=== PATIENT | male | born 1950 | race American Indian/Alaskan Native ===

== ENCOUNTER 2018-02-16 06:25 | Inpatient (IN) | payer OTHER, MEDICARE ==
[2018-01-03 12:14] VITALS: BMI 50.1
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
[2018-02-16] MEDS ORDERED: Sevoflurane - Inhalation Anesthetic Liq (250 ml) ONE (07:12)
[2018-02-16] MEDS ORDERED: ceFAZolin IV 2 gm in Dextrose 4 GM/100 ML BAG IVPB ONE (07:16)
[2018-02-16] MEDS ORDERED: Thrombin Topical 5,000 Int Units Spray Kit ONE (07:17)
[2018-02-16] MEDS ORDERED: Bacitracin Ointment 30 GM TUBE ONE ×2 (07:17→13:41)
[2018-02-16] MEDS ORDERED: Absorbable Gelatin Sponge Size 100 ONE (07:17)
[2018-02-16 07:20] LABS: BASO # 0.1 K/uL (0.0-0.2); EOS # 0.3 K/uL (0.0-0.7); HEMOGLOBIN 14.2 g/dL (12.0-18.0); LYMPH % 29.8 % (20.0-40.0); MEAN CELL VOLUME 93.7 fl (80.0-94.0); MEAN CORPUSCULAR HEMOGLOBIN 31.5 pg (27.0-31.0); MEAN CORPUSCULAR HGB CONC 33.6 g/dL (33.0-37.0); MEAN PLATELET VOLUME 8.6 fl (7.2-11.7); MONO # 0.7 K/uL (0.0-0.8); MONO % 10.4 % (0.0-10.0); NEUT # 3.6 K/uL (1.8-7.0); NEUT % 54.8 % (50.0-75.0); RBC 4.5 Mil/uL (4.40-5.90); RED CELL DISTRIBUTION WIDTH 13.5 % (11.5-14.5); WHITE BLOOD COUNT 6.6 K/uL (4.8-10.8)
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
[2018-02-16] MEDS ORDERED: Lactated Ringer's 1,000 ML IV ONE ×3 (07:30→12:30)
[2018-02-16] MEDS ORDERED: Bupivacaine HCl 0.25% PF (10 ml) Inj ONE ×2 (08:06→09:37)
[2018-02-16] MEDS ORDERED: Midazolam 2 MG/2 ML VIAL ONE (08:48)
[2018-02-16] MEDS ORDERED: Propofol 10 mg/ml Inj (20 ML) ONE (08:48)
[2018-02-16] MEDS ORDERED: Rocuronium 10 mg/ml (5 ml) ONE ×2 (08:48→10:43)
[2018-02-16] MEDS ORDERED: Succinylcholine 200 mg/10 ml Inj IV ONE (08:49)
[2018-02-16] MEDS ORDERED: Lidocaine 2% Jelly (5 ml) TOP ONE (09:51)
[2018-02-16] MEDS ORDERED: Sodium Chloride 0.9% 500 ML IV ONE (10:30)
[2018-02-16] MEDS ORDERED: Labetalol 5mg/ml (4ml) ONE (11:04)
[2018-02-16] MEDS ORDERED: EPINEPHrine 1 mg/ml (1:1000) Inj ONE (11:18)
[2018-02-16] MEDS ORDERED: EPINEPHrine 1 mg/ml (1:1000) Inj IV ONE (11:20)
[2018-02-16] MEDS ORDERED: Tranexamic Acid 1,000 MG in Sodium Chloride 0.9% 100 ML IVPB STA (11:22)
--- NOTE | 2018-02-16 11:31 | RAD ---
PROCEDURE: Left Knee Radiographs. HISTORY: Pain. No history of recent/ related trauma provided COMPARISON: None. FINDINGS: BONES: No acute fracture JOINTS: Severe tricompartmental degenerative change. No acute fracture. Proliferative hypertrophic changes emanating from the femoral condyle and tibial plateau regions. JOINT EFFUSION: None. OTHER FINDINGS: None. IMPRESSION: No acute findings. Severe tricompartmental degenerative change.
[2018-02-16 13:02] LABS: MEAN CELL VOLUME 92.9 fl (80.0-94.0); MEAN CORPUSCULAR HEMOGLOBIN 31.4 pg (27.0-31.0); MEAN CORPUSCULAR HGB CONC 33.8 g/dL (33.0-37.0); RBC 3.64 Mil/uL (4.40-5.90); RED CELL DISTRIBUTION WIDTH 13.7 % (11.5-14.5); WHITE BLOOD COUNT 5.5 K/uL (4.8-10.8)
[2018-02-16] MEDS ORDERED: Neostigmine 1:1000 (1 mg/ml) Inj ONE (13:13)
[2018-02-16 13:25] LABS: HEMOGLOBIN 11.4 g/dL (12.0-18.0)
[2018-02-16] MEDS ORDERED: Bacitracin Opht OINT 3.5GM OU ONE (14:00)
[2018-02-16] MEDS ORDERED: HYDROmorphone 0.5 mg/0.5 ml ISec ONE ×2 (14:31→14:39)
[2018-02-16] MEDS ORDERED: HYDROmorphone 0.5 mg/0.5 ml ISec IVP PRN (14:32)
--- NOTE | 2018-02-16 14:44 | PCM.ANESB3 ---
Femoral Nerve Block - Femoral Nerve Block Date of Procedure: 02/16/18 Anesthesiologist: Yamile Pre-Procedure Diagnosis: s/p left total knee arthroplasty Post-Procedure Diagnosis: same Procedure Performed: Femoral Nerve Block Left - Procedure Femoral Nerve Block: The procedure was explained to the patient that it is for the post-operative pain management. Consent was obtained after a thorough discussion with the patient regarding the benefits and possible complications of local anesthetic block of the femoral nerve at the inguinal crease area. The patient was brought to the operating room and standard monitors were applied. Time-out was held with the circulating nurse to confirm the correct surgery and the appropriate block. Patient was placed in supine position with fully extended lower extremities and the left groin exposed. The femoral artery was then carefully palpated. The ultrasound transducer was then applied to this area in the transverse plane and the femoral nerve was visualized lateral to the femoral artery and underneath the fascia iliaca. After thorough identification, the inguinal crease area was prepped with chloraprep. At this point, a #22 gauge Stimuplex 4-inch needle was inserted immediately lateral to the femoral artery pulse at the inguinal crease and advanced perpendicularly. The needle was inserted to the ultrasound transducer in-plane towards the femoral nerve in a [id number] direction. Needle advancement was performed carefully under direct ultrasound visualization. Nerve stimulator was used and twitch of the quadriceps muscle was obtained at current of __0.5_ MA. After negative aspiration, 5cc of 0.25% bupivacaine was injected and this was followed with 25cc of 0.25% Bupivacaine. Under ultrasound guidance the local anesthetics were observed spreading below fascia iliaca and around the femoral nerve. The needle was removed intact and sterile dressing was applied. The patient had stable vital signs, was conscious and in no apparent distress. The patient tolerated the femoral nerve block well with stable vital signs.
[2018-02-16] MEDS ORDERED: Acetaminophen IV 1,000 MG in IV SUPPLIES 100 ML IVPB STA (14:45)
[2018-02-16] MEDS ORDERED: Fluticasone-Salmeterol 250-50mcg Diskus INH PRN (15:24)
--- NOTE | 2018-02-16 16:08 | RAD ---
PROCEDURE: Left knee radiographs HISTORY: s/p L TKA COMPARISON: Preoperative study February 16, 2018. . TECHNIQUE: Standard protocol for this study/examination. FINDINGS: Satisfactory position and alignment of components left TKA. IMPRESSION: Satisfactory postoperative status
[2018-02-16] MEDS ORDERED: HYDROmorphone 1 mg/ml ISec IVP PRN (17:21)
--- NOTE | 2018-02-16 17:53 | PCM.SURG1 ---
Surgeon's Initial Post Op Note - Surgeon's Notes Surgeon: Nanci Pelletier MD Program Manager Environmental Planning: Vickie Carpio PA-C, Hans GARDNER, Lois Chauhan PA-C Type of Anesthesia: General Endo Anesthesia Administered By: Dr. Laguerre Pre-Operative Diagnosis: Left knee tricompartmental degenerative joint disease. Morbid obesity Operative Findings: tourniquet:2 hours @ 425mmHg Post-Operative Diagnosis: same Operation Performed: 1. Left total knee arthroplasty, complex due to modifier of morbid obesity. 2. morbid obesity. 3. posterior capsular release. 4. anterior and posterior synovectomy. 5. computer navigation Specimen/Specimens Removed: bone Estimated Blood Loss: EBL {In ML}: 700 Blood Products Given: N/A Drains Used: Hemovac Post-Op Condition: Fair Date of Surgery/Procedure: 02/16/18 Time of Surgery/Procedure: 18:08
[2018-02-16] MEDS: ceFAZolin IV 2 gm in Dextrose 2 GM/50 ML BAG IVPB SCH (18:07)
[2018-02-16] MEDS: HYDROmorphone 0.5 mg/0.5 ml ISec IVP PRN ×2 (18:10→23:48)
[2018-02-16] MEDS: Lactated Ringer's 1,000 ML IV SCH (18:17)
[2018-02-17] MEDS: ceFAZolin IV 2 gm in Dextrose 2 GM/50 ML BAG IVPB SCH ×2 (00:02→09:13)
[2018-02-17] MEDS: HYDROmorphone 0.5 mg/0.5 ml ISec IVP PRN ×4 (04:21→22:57)
[2018-02-17] MEDS: Lactated Ringer's 1,000 ML IV SCH (04:21)
[2018-02-17 06:59] LABS: HEMOGLOBIN 10.8 g/dL (12.0-18.0); MEAN CELL VOLUME 92.7 fl (80.0-94.0); MEAN CORPUSCULAR HEMOGLOBIN 32.1 pg (27.0-31.0); MEAN CORPUSCULAR HGB CONC 34.6 g/dL (33.0-37.0); RBC 3.37 Mil/uL (4.40-5.90); RED CELL DISTRIBUTION WIDTH 13.5 % (11.5-14.5); WHITE BLOOD COUNT 10.8 K/uL (4.8-10.8)
[2018-02-17 07:06] LABS: BLOOD UREA NITROGEN 14 mg/dl (9-20); CALCIUM 7.8 mg/dL (8.4-10.2); GFR AFRICAN-AMERICAN > 60; GFR NON-AFRICAN AMERICAN > 60
--- NOTE | 2018-02-17 09:07 | CP.PCM.PN ---
Subjective - Date & Time of Evaluation Date of Evaluation: 02/17/18 Time of Evaluation: 09:05 - Subjective Subjective: Patient states the knee immobilizer is hurting his ankle more that the knee pain. Denies CP/SOB/dizziness Objective - Vital Signs/Intake and Output Vital Signs (last 24 hours): Temp Pulse Resp BP Pulse Ox 98.1 F 101 H 19 147/74 94 L 02/17/18 07:55 02/17/18 07:55 02/17/18 07:55 02/17/18 07:55 02/17/18 07:55 Intake and Output: 02/17/18 02/17/18 06:59 18:59 Intake Total 650 Output Total 650 Balance 0 - Medications Medications: Current Medications Acetaminophen (Tylenol 325mg Tab) 650 mg PO Q4 PRN PRN Reason: Fever 101 degrees fahrenheit Docusate Sodium (Colace) 100 mg PO BID [facility] Last Admin: 02/16/18 18:18 Dose: 100 mg Dronedarone (Multaq) 400 mg PO BID [facility] Last Admin: 02/16/18 18:09 Dose: 400 mg Enoxaparin Sodium (Lovenox) 40 mg SC DAILY [facility] PRN Reason: Protocol Ferrous Sulfate (Feosol) 325 mg PO BID [facility] Last Admin: 02/16/18 18:08 Dose: 325 mg Folic Acid (Folic Acid) 1 mg PO DAILY [facility] Hydromorphone HCl (Dilaudid) 1 mg IVP Q4 PRN PRN Reason: Pain, severe (8-10) Last Admin: 02/17/18 04:21 Dose: 1 mg Cefazolin Sodium/Dextrose (Ancef Iv 2 Gm Duplex) 2 gm in 50 mls @ 50 mls/hr IVPB Q8 [facility] PRN Reason: Protocol Stop: 02/17/18 09:59 Last Admin: 02/17/18 00:02 Dose: 50 mls/hr Lactated Ringer's (Lactated Ringer's) 1,000 mls @ 100 mls/hr IV .Q10H [facility] Last Admin: 02/17/18 04:21 Dose: 100 mls/hr Metoprolol Succinate (Toprol Xl) 25 mg PO DAILY [facility] Ondansetron HCl (Zofran Inj) 4 mg IVP ONCE PRN PRN Reason: Nausea/Vomiting Oxycodone/Acetaminophen (Percocet 5/325 Mg Tab) 2 tab PO Q6 PRN PRN Reason: Pain, moderate (4-7) Stop: 02/19/18 17:23 Fluticasone/Salmeterol (Advair Diskus 250/50) 1 puff INH DAILY PRN PRN Reason: Allergy symptoms - Labs Labs: 02/17/18 06:30 02/17/18 06:30 - Extremities Exam Additional comments: LLE: hemovac 10cc, pulled +ROM ankle/toes, sensation intact, +DP/PT pulses calves soft Nt neg homans Assessment and Plan (1) Primary osteoarthritis of left knee Assessment & Plan: POD#1 s/p left TKR -PT/OT/CPM -d/c planning -VTE proph with lovenox -ortho stable -d/w Dr. Pelletier, agrees with above Status: Acute (2) Morbid obesity Status: Chronic (3) A-fib Status: Chronic (4) HTN (hypertension) Status: Chronic
[2018-02-17] MEDS: Enoxaparin 40 mg Syringe SC SCH (09:14)
[2018-02-17] MEDS: Metoprolol Succinate 25 mg XL Tab PO SCH (09:15)
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
[2018-02-17] MEDS: Oxycodone/Acetaminophen 5/325 mg Tab PO PRN ×2 (12:52→19:24)
--- NOTE | 2018-02-17 13:06 | CP.PCM.PN ---
Subjective - Date & Time of Evaluation Date of Evaluation: 02/17/18 Time of Evaluation: 10:00 - Subjective Subjective: Patient was seen and examined at bedside this morning. Relates that he has pain with movement but it is controlled with pain medications. Has no new complaints today. Was seen by physical therapy. Denies chest pain, fever, chills, nausea, vomiting, diarrhea. Objective - Vital Signs/Intake and Output Vital Signs (last 24 hours): Temp Pulse Resp BP Pulse Ox 98.1 F 85 19 121/74 94 L 02/17/18 12:19 02/17/18 12:19 02/17/18 12:19 02/17/18 12:19 02/17/18 12:19 Intake and Output: 02/17/18 02/17/18 06:59 18:59 Intake Total 650 Output Total 650 Balance 0 - Medications Medications: Current Medications Acetaminophen (Tylenol 325mg Tab) 650 mg PO Q4 PRN PRN Reason: Fever 101 degrees fahrenheit Docusate Sodium (Colace) 100 mg PO BID [facility] Last Admin: 02/17/18 09:14 Dose: 100 mg Dronedarone (Multaq) 400 mg PO BID [facility] Last Admin: 02/17/18 09:15 Dose: 400 mg Enoxaparin Sodium (Lovenox) 40 mg SC DAILY [facility] PRN Reason: Protocol Last Admin: 02/17/18 09:14 Dose: 40 mg Ferrous Sulfate (Feosol) 325 mg PO BID [facility] Last Admin: 02/17/18 09:14 Dose: 325 mg Folic Acid (Folic Acid) 1 mg PO DAILY [facility] Last Admin: 02/17/18 09:14 Dose: 1 mg Hydromorphone HCl (Dilaudid) 1 mg IVP Q4 PRN PRN Reason: Pain, severe (8-10) Last Admin: 02/17/18 09:08 Dose: 1 mg Metoprolol Succinate (Toprol Xl) 25 mg PO DAILY [facility] Last Admin: 02/17/18 09:15 Dose: 25 mg Ondansetron HCl (Zofran Inj) 4 mg IVP ONCE PRN PRN Reason: Nausea/Vomiting Oxycodone/Acetaminophen (Percocet 5/325 Mg Tab) 2 tab PO Q6 PRN PRN Reason: Pain, moderate (4-7) Stop: 06/03/18 17:23 Last Admin: 02/17/18 12:52 Dose: 2 tab Fluticasone/Salmeterol (Advair Diskus 250/50) 1 puff INH DAILY PRN PRN Reason: Allergy symptoms - Labs Labs: 02/17/18 06:30 02/17/18 06:30 - Additional Findings Additional findings: Physical exam: Constitutional- cooperative, awake, alert Head- NCAT, PERRL Eye- PERRL, EOMI ENT- normal exam, MMM. Neck- normal inspection, supple, no JVD Respiratory- CTAB, no wheezes rales rhonchi Cardiovascular- irregular rate and rhythm +S1, +S2 no MRG GI/Abdominal- normal bowel sounds, soft, no mass, no hsm Skin- warm, dry Extremities Exam- + Decreased ROM to left knee. normal capillary refill, normal inspection Neurological Exam- alert, awake, oriented Psych- normal mood, normal affect Assessment and Plan - Assessment and Plan (Free Text) Plan: Assessment & Plan 67 yo male admitted s/p L TKR, with pmh chronic afib, HTN, asthma/COPD, stable at present. 1) s/p L TKR, post op day #1 -routine post op care -pain mgmt with percocet - Colace for contstipation prevention - Orthopedic consultation with Dr. Pelletier - Physical therapy 2) HTN - [place] Toprol 3) HLD - chronic, stable 4) Asthma/COPD -- stable, chronic - Advair (home medication) 5) A fib -- chronic, stable - continue Toprol for rate control - Dronedarone 400 mg po BID 6) DVT PPx -- Continue Lovenox as per orthopedics Status: Acute Disposition: Plan for discharge on Tuesday02/19/2018 to [facility] as per case management
--- NOTE | 2018-02-17 19:28 | CP.PCM.CON ---
History of Present Illness - History of Present Illness History of Present Illness: THE PATIENT IS A 67 YEAR OLD MALE WHO WAS ADMITTED YESTERDAY AND UNDERWENT A LEFT TKR FOR SEVERE OA AND TRAUMA. I WAS ASKED TO FOLLOW HIM POST-OP. HE ALSO HAS A HISTORY OF HYPERTENSION, HYPERLIPIDEMIA, EPISODES OF ATRIAL FIBRILLATION SINCE 1999, COPD AND MORBID OBESITY. 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 HE DENIES ANY CHEST PAIN, PALPITATIONS OR SOB AT THE PRESENT TIME. HE ALSO HAD A PRIOR RT TKR AND A LAMINECTOMY. Past Patient History - Past Medical History & Family History Past Medical History?: Yes - Past Social History Smoking Status: Former Smoker - CARDIAC Hx Cardiac Disorders: Yes Hx Hypercholesterolemia: Yes Hx Hypertension: Yes - PULMONARY Hx Respiratory Disorders: Yes Hx Asthma: Yes - NEUROLOGICAL Hx Neurological Disorder: No - HEENT Hx HEENT Problems: No - RENAL Hx Chronic Kidney Disease: No - ENDOCRINE/METABOLIC Hx Endocrine Disorders: No - HEMATOLOGICAL/ONCOLOGICAL Hx Blood Disorders: No - INTEGUMENTARY Hx Dermatological Problems: No - MUSCULOSKELETAL/RHEUMATOLOGICAL Hx Musculoskeletal Disorders: Yes Hx Arthritis: Yes (general) - GASTROINTESTINAL Hx Gastrointestinal Disorders: No - GENITOURINARY/GYNECOLOGICAL Hx Genitourinary Disorders: No - PSYCHIATRIC Hx Psychophysiologic Disorder: No - SURGICAL HISTORY Hx Surgeries: Yes Hx Orthopedic Surgery: Yes (total right knee,) Other/Comment: spine surgery. left arm tricep tear - ANESTHESIA Hx Anesthesia: Yes Hx Anesthesia Reactions: No Hx Malignant Hyperthermia: No Has any member of the family had a problem w/ anesthesia?: No Meds Allergies/Adverse Reactions: Allergies Allergy/AdvReac Type Severity Reaction Status Date / Time No Known Allergies Allergy Verified 02/16/18 06:49 - Medications Medications: Current Medications Acetaminophen (Tylenol 325mg Tab) 650 mg PO Q4 PRN PRN Reason: Fever 101 degrees fahrenheit Docusate Sodium (Colace) 100 mg PO BID [facility] Last Admin: 02/17/18 17:38 Dose: 100 mg Dronedarone (Multaq) 400 mg PO BID [facility] Last Admin: 02/17/18 17:39 Dose: 400 mg Enoxaparin Sodium (Lovenox) 40 mg SC DAILY [facility] PRN Reason: Protocol Last Admin: 02/17/18 09:14 Dose: 40 mg Ferrous Sulfate (Feosol) 325 mg PO BID [facility] Last Admin: 02/17/18 17:40 Dose: 325 mg Folic Acid (Folic Acid) 1 mg PO DAILY [facility] Last Admin: 02/17/18 09:14 Dose: 1 mg Hydromorphone HCl (Dilaudid) 1 mg IVP Q4 PRN PRN Reason: Pain, severe (8-10) Last Admin: 02/17/18 17:03 Dose: 1 mg Metoprolol Succinate (Toprol Xl) 25 mg PO DAILY [facility] Last Admin: 02/17/18 09:15 Dose: 25 mg Ondansetron HCl (Zofran Inj) 4 mg IVP ONCE PRN PRN Reason: Nausea/Vomiting Oxycodone/Acetaminophen (Percocet 5/325 Mg Tab) 2 tab PO Q6 PRN PRN Reason: Pain, moderate (4-7) Stop: 02/19/18 17:23 Last Admin: 02/17/18 19:24 Dose: 2 tab Fluticasone/Salmeterol (Advair Diskus 250/50) 1 puff INH DAILY PRN PRN Reason: Allergy symptoms Physical Exam - Respiratory Exam Respiratory Exam: Clear to Auscultation Bilateral - Cardiovascular Exam Cardiovascular Exam: REGULAR RHYTHM, +S1, +S2 - Additional Findings Additional findings: PRE-OP EKG SHOWED NSR Results - Vital Signs Recent Vital Signs: Last Vital Signs Temp 98.7 F 02/17/18 16:17 Pulse 78 02/17/18 16:17 Resp 20 02/17/18 16:17 BP 127/71 02/17/18 16:17 Pulse Ox 95 02/17/18 16:17 - Labs Result Diagrams: 02/17/18 06:30 02/17/18 06:30 Labs: Laboratory Results - last 24 hr 02/17/18 02/17/18 02/17/18 06:30 06:30 06:30 WBC 10.8 D RBC 3.37 L Hgb 10.8 L Hct 31.3 L MCV 92.7 MCH 32.1 H MCHC 34.6 RDW 13.5 Plt Count 223 Sodium 140 Potassium 4.5 Chloride 108 H Carbon Dioxide 24 Anion Gap 13 BUN 14 Creatinine 0.9 Est GFR ( Amer) > 60 Est GFR (Non-Af Amer) > 60 Random Glucose 125 H Calcium 7.8 L 25-OH Vitamin D Total < 12.8 L Assessment & Plan - Assessment and Plan (Free Text) Assessment: S/P LEFT TKR HISTORY OF ATRIAL FIBRILLATION BUT PRESENTLY IN SINUS RHYTHM HYPERTENSION HYPERLIPIDEMIA Plan: CONTINUE MULTAQ, METOPROLOL AND LOVENOX EKG IN AM FOR REHAB
[2018-02-18 08:15] VITALS: RESP 20
[2018-02-18 08:31] LABS: BLOOD UREA NITROGEN 13 mg/dl (9-20); CALCIUM 7.8 mg/dL (8.4-10.2); GFR AFRICAN-AMERICAN > 60; GFR NON-AFRICAN AMERICAN > 60
[2018-02-18] MEDS: Oxycodone/Acetaminophen 5/325 mg Tab PO PRN ×3 (08:43→20:28)
[2018-02-18 08:48] LABS: HEMOGLOBIN 9.6 g/dL (12.0-18.0); MEAN CORPUSCULAR HEMOGLOBIN 31.7 pg (27.0-31.0); MEAN CORPUSCULAR HGB CONC 33.8 g/dL (33.0-37.0); RBC 3.01 Mil/uL (4.40-5.90); RED CELL DISTRIBUTION WIDTH 13.7 % (11.5-14.5); WHITE BLOOD COUNT 15.2 K/uL (4.8-10.8)
[2018-02-18] MEDS: Metoprolol Succinate 25 mg XL Tab PO SCH (09:18)
[2018-02-18] MEDS: Enoxaparin 40 mg Syringe SC SCH (09:19)
--- NOTE | 2018-02-18 09:56 | CP.PCM.PN ---
Subjective - Date & Time of Evaluation Date of Evaluation: 02/18/18 Time of Evaluation: 11:30 - Subjective Subjective: Patient seen and examined bedside. Felling better . Pain is controlled. Hemodynamically stable, afebrile. No acute issues overnight. Objective - Vital Signs/Intake and Output Vital Signs (last 24 hours): Temp Pulse Resp BP Pulse Ox 99.3 F 84 20 114/75 95 02/18/18 08:14 02/18/18 09:18 02/18/18 08:14 02/18/18 09:18 02/18/18 08:14 - Medications Medications: Current Medications Acetaminophen (Tylenol 325mg Tab) 650 mg PO Q4 PRN PRN Reason: Fever 101 degrees fahrenheit Docusate Sodium (Colace) 100 mg PO BID [facility] Last Admin: 02/18/18 09:17 Dose: 100 mg Dronedarone (Multaq) 400 mg PO BID [facility] Last Admin: 02/18/18 09:18 Dose: 400 mg Enoxaparin Sodium (Lovenox) 40 mg SC DAILY [facility] PRN Reason: Protocol Last Admin: 02/18/18 09:19 Dose: 40 mg Ergocalciferol (Drisdol 50,000 Intl Units Cap) 1 cap PO Q7D [facility] Ferrous Sulfate (Feosol) 325 mg PO BID [facility] Last Admin: 02/18/18 09:17 Dose: 325 mg Folic Acid (Folic Acid) 1 mg PO DAILY [facility] Last Admin: 02/18/18 09:18 Dose: 1 mg Hydromorphone HCl (Dilaudid) 1 mg IVP Q4 PRN PRN Reason: Pain, severe (8-10) Last Admin: 02/17/18 22:57 Dose: 1 mg Metoprolol Succinate (Toprol Xl) 25 mg PO DAILY [facility] Last Admin: 02/18/18 09:18 Dose: 25 mg Ondansetron HCl (Zofran Inj) 4 mg IVP ONCE PRN PRN Reason: Nausea/Vomiting Oxycodone/Acetaminophen (Percocet 5/325 Mg Tab) 2 tab PO Q6 PRN PRN Reason: Pain, moderate (4-7) Stop: 02/19/18 17:23 Last Admin: 02/18/18 08:43 Dose: 2 tab Fluticasone/Salmeterol (Advair Diskus 250/50) 1 puff INH DAILY PRN PRN Reason: Allergy symptoms - Labs Labs: 02/18/18 06:00 02/18/18 06:00 - Constitutional Appears: Non-toxic, No Acute Distress, Other (obese) - Head Exam Head Exam: ATRAUMATIC, NORMAL INSPECTION, NORMOCEPHALIC - Eye Exam Eye Exam: EOMI, Normal appearance, PERRL Pupil Exam: NORMAL ACCOMODATION - ENT Exam ENT Exam: Mucous Membranes Moist, Normal Exam - Neck Exam Neck Exam: Full ROM, Normal Inspection - Respiratory Exam Respiratory Exam: Clear to Ausculation Bilateral, NORMAL BREATHING PATTERN. absent: Rales, Rhonchi, Wheezes - Cardiovascular Exam Cardiovascular Exam: REGULAR RHYTHM, RRR, +S1, +S2. absent: JVD - GI/Abdominal Exam GI & Abdominal Exam: Soft, Normal Bowel Sounds. absent: Distended, Guarding, Tenderness, Rebound - Rectal Exam Rectal Exam: Deferred - Extremities Exam Extremities Exam: Full ROM, Normal Capillary Refill, Normal Inspection Additional comments: left lower extremity with MANUELA bandage and dressing - Back Exam Back Exam: NORMAL INSPECTION - Neurological Exam Neurological Exam: Alert, CN II-XII Intact, Oriented x3 - Psychiatric Exam Psychiatric exam: Normal Affect, Normal Mood - Skin Skin Exam: Dry, Intact, Normal Color, Warm Assessment and Plan - Assessment and Plan (Free Text) Assessment: 67 yo male with PMH HTN, paroxysmal AFIb, sleep apnea, obesity ,Asthma/ COPD admitted s/p L TKR. At present doing well. waiting for [facility] transfer 1. s/p L TKR, post op day #2 pain management with percocet PRN DVt prophylaxis with lovenox Incentive spirometry Colace for constipation prevention Orthopedic consultation with Dr. Pelletier Physical therapy consult appreciated for transfer to [facility] in am 2. HTN Controlled Continue Toprol 3. HLD chronic, stable 4. Asthma/COPD stable, chronic Advair 5.Paroxysmal A fib SR at present cardiology cosnult with Dr. Abernathy appreciated . Recommended no anticoagulation only Lovenox 40 Mg Sq for DVt prophylaxis Continue Toprol and Amiodarone 6.Morbid Obesity BMI 50 7. Acute blood loss anemia Hgb dropped from 14 -- 9.6 continue to monitor 8. Leukocytosis Most likely reactive 9.Vitamin D deficiency Started Vitamin D Po once a week 10.DVT PPx Continue Lovenox as per orthopedics Disposition: Plan for discharge on Tuesday02/19/2018 to [facility] as per case management
[2018-02-18] MEDS ORDERED: Ergocalciferol 50,000 Intl Units Cap PO SCH (10:00)
--- NOTE | 2018-02-18 13:07 | CP.PCM.PN ---
Subjective - Date & Time of Evaluation Date of Evaluation: 02/18/18 Time of Evaluation: 10:30 - Subjective Subjective: S- pt with minimal post op discomfort Objective - Vital Signs/Intake and Output Vital Signs (last 24 hours): Temp Pulse Resp BP Pulse Ox 99.3 F 84 20 114/75 95 02/18/18 08:14 02/18/18 09:18 02/18/18 08:14 02/18/18 09:18 02/18/18 08:14 - Medications Medications: Current Medications Acetaminophen (Tylenol 325mg Tab) 650 mg PO Q4 PRN PRN Reason: Fever 101 degrees fahrenheit Docusate Sodium (Colace) 100 mg PO BID [facility] Last Admin: 02/18/18 09:17 Dose: 100 mg Dronedarone (Multaq) 400 mg PO BID [facility] Last Admin: 02/18/18 09:18 Dose: 400 mg Enoxaparin Sodium (Lovenox) 40 mg SC DAILY [facility] PRN Reason: Protocol Last Admin: 02/18/18 09:19 Dose: 40 mg Ergocalciferol (Drisdol 50,000 Intl Units Cap) 1 cap PO Q7D [facility] Last Admin: 02/18/18 12:11 Dose: 1 cap Ferrous Sulfate (Feosol) 325 mg PO BID [facility] Last Admin: 02/18/18 09:17 Dose: 325 mg Folic Acid (Folic Acid) 1 mg PO DAILY [facility] Last Admin: 02/18/18 09:18 Dose: 1 mg Hydromorphone HCl (Dilaudid) 1 mg IVP Q4 PRN PRN Reason: Pain, severe (8-10) Last Admin: 02/17/18 22:57 Dose: 1 mg Metoprolol Succinate (Toprol Xl) 25 mg PO DAILY [facility] Last Admin: 02/18/18 09:18 Dose: 25 mg Ondansetron HCl (Zofran Inj) 4 mg IVP ONCE PRN PRN Reason: Nausea/Vomiting Oxycodone/Acetaminophen (Percocet 5/325 Mg Tab) 2 tab PO Q6 PRN PRN Reason: Pain, moderate (4-7) Stop: 02/19/18 17:23 Last Admin: 02/18/18 08:43 Dose: 2 tab Fluticasone/Salmeterol (Advair Diskus 250/50) 1 puff INH DAILY PRN PRN Reason: Allergy symptoms - Labs Labs: 02/18/18 06:00 02/18/18 06:00 - Additional Findings Additional findings: Musculoskeltal stance/gait- defrred dressing/immobilizer dry and intact orthopedically stable no sepsis/no thromboembolic disease Assessment and Plan - Assessment and Plan (Free Text) Assessment: A- s/. P complex L postvtraumatic knee replacement P- orthopedically stabvle full weight bearing
--- NOTE | 2018-02-18 14:49 | CP.PCM.PN ---
Subjective - Date & Time of Evaluation Date of Evaluation: 02/18/18 Time of Evaluation: 13:20 - Subjective Subjective: NO COMPLAINTS Objective - Vital Signs/Intake and Output Vital Signs (last 24 hours): Temp Pulse Resp BP Pulse Ox 99.3 F 84 20 114/75 95 02/18/18 08:14 02/18/18 09:18 02/18/18 08:14 02/18/18 09:18 02/18/18 08:14 - Medications Medications: Current Medications Acetaminophen (Tylenol 325mg Tab) 650 mg PO Q4 PRN PRN Reason: Fever 101 degrees fahrenheit Docusate Sodium (Colace) 100 mg PO BID [facility] Last Admin: 02/18/18 09:17 Dose: 100 mg Dronedarone (Multaq) 400 mg PO BID [facility] Last Admin: 02/18/18 09:18 Dose: 400 mg Enoxaparin Sodium (Lovenox) 40 mg SC DAILY [facility] PRN Reason: Protocol Last Admin: 02/18/18 09:19 Dose: 40 mg Ergocalciferol (Drisdol 50,000 Intl Units Cap) 1 cap PO Q7D [facility] Last Admin: 02/18/18 12:11 Dose: 1 cap Ferrous Sulfate (Feosol) 325 mg PO BID [facility] Last Admin: 02/18/18 09:17 Dose: 325 mg Folic Acid (Folic Acid) 1 mg PO DAILY [facility] Last Admin: 02/18/18 09:18 Dose: 1 mg Hydromorphone HCl (Dilaudid) 1 mg IVP Q4 PRN PRN Reason: Pain, severe (8-10) Last Admin: 02/17/18 22:57 Dose: 1 mg Metoprolol Succinate (Toprol Xl) 25 mg PO DAILY [facility] Last Admin: 02/18/18 09:18 Dose: 25 mg Ondansetron HCl (Zofran Inj) 4 mg IVP ONCE PRN PRN Reason: Nausea/Vomiting Oxycodone/Acetaminophen (Percocet 5/325 Mg Tab) 2 tab PO Q6 PRN PRN Reason: Pain, moderate (4-7) Stop: 02/19/18 17:23 Last Admin: 02/18/18 14:19 Dose: 2 tab Fluticasone/Salmeterol (Advair Diskus 250/50) 1 puff INH DAILY PRN PRN Reason: Allergy symptoms - Labs Labs: 02/18/18 06:00 02/18/18 06:00 - Respiratory Exam Respiratory Exam: Clear to Ausculation Bilateral - Cardiovascular Exam Cardiovascular Exam: REGULAR RHYTHM, +S1, +S2 - Additional Findings Additional findings: EKG TODAY NSR Assessment and Plan - Assessment and Plan (Free Text) Assessment: S/P LEFT TKR HYPERTENSION HISTORY OF ATRIAL FIBRILLATION Plan: CONTINUE MULTAK, METOPROLOL AND LOVENOX
[2018-02-18] MEDS: HYDROmorphone 0.5 mg/0.5 ml ISec IVP PRN (20:24)
[2018-02-18 23:55] VITALS: O2SAT 98
[2018-02-19 07:18] LABS: HEMOGLOBIN 8.4 g/dL (12.0-18.0); MEAN CELL VOLUME 94.3 fl (80.0-94.0); MEAN CORPUSCULAR HGB CONC 32.9 g/dL (33.0-37.0); RBC 2.72 Mil/uL (4.40-5.90); RED CELL DISTRIBUTION WIDTH 13.4 % (11.5-14.5); WHITE BLOOD COUNT 11.7 K/uL (4.8-10.8)
[2018-02-19 07:33] LABS: ALB/GLOB RATIO 0.9 (1.0-2.1); ALBUMIN 2.7 g/dL (3.5-5.0); ALT/SGPT 21 U/L (21-72); AST/SGOT 25 U/L (17-59); BLOOD UREA NITROGEN 12 mg/dl (9-20); CALCIUM 7.7 mg/dL (8.4-10.2); GFR AFRICAN-AMERICAN > 60; GFR NON-AFRICAN AMERICAN > 60
[2018-02-19 08:30] VITALS: BP 121/56; PULSE 76; TEMP 98
[2018-02-19] MEDS: Enoxaparin 40 mg Syringe SC SCH (09:05)
[2018-02-19] MEDS: Metoprolol Succinate 25 mg XL Tab PO SCH (09:06)
--- NOTE | 2018-02-19 10:55 | CP.PCM.PN ---
Subjective - Date & Time of Evaluation Date of Evaluation: 02/19/18 Time of Evaluation: 10:20 - Subjective Subjective: NO CHEST PAIN, PALPITATIONS OR SOB FEELS GOOD Objective - Vital Signs/Intake and Output Vital Signs (last 24 hours): Temp Pulse Resp BP Pulse Ox 98 F 76 20 121/56 L 98 02/19/18 08:29 02/19/18 08:29 02/19/18 08:29 02/19/18 09:06 02/19/18 08:29 - Medications Medications: Current Medications Acetaminophen (Tylenol 325mg Tab) 650 mg PO Q4 PRN PRN Reason: Fever 101 degrees fahrenheit Docusate Sodium (Colace) 100 mg PO BID [facility] Last Admin: 02/19/18 09:06 Dose: 100 mg Dronedarone (Multaq) 400 mg PO BID [facility] Last Admin: 02/19/18 09:05 Dose: 400 mg Enoxaparin Sodium (Lovenox) 40 mg SC DAILY [facility] PRN Reason: Protocol Last Admin: 02/19/18 09:05 Dose: 40 mg Ergocalciferol (Drisdol 50,000 Intl Units Cap) 1 cap PO Q7D [facility] Last Admin: 02/18/18 12:11 Dose: 1 cap Ferrous Sulfate (Feosol) 325 mg PO BID [facility] Last Admin: 02/19/18 09:06 Dose: 325 mg Folic Acid (Folic Acid) 1 mg PO DAILY [facility] Last Admin: 02/19/18 09:06 Dose: 1 mg Hydromorphone HCl (Dilaudid) 1 mg IVP Q4 PRN PRN Reason: Pain, severe (8-10) Last Admin: 02/17/18 22:57 Dose: 1 mg Metoprolol Succinate (Toprol Xl) 25 mg PO DAILY [facility] Last Admin: 02/19/18 09:06 Dose: Not Given Ondansetron HCl (Zofran Inj) 4 mg IVP ONCE PRN PRN Reason: Nausea/Vomiting Oxycodone/Acetaminophen (Percocet 5/325 Mg Tab) 2 tab PO Q6 PRN PRN Reason: Pain, moderate (4-7) Stop: 02/19/18 17:23 Last Admin: 02/18/18 20:28 Dose: 2 tab Fluticasone/Salmeterol (Advair Diskus 250/50) 1 puff INH DAILY PRN PRN Reason: Allergy symptoms - Labs Labs: 02/19/18 05:30 02/19/18 05:30 - Respiratory Exam Respiratory Exam: Clear to Ausculation Bilateral - Cardiovascular Exam Cardiovascular Exam: REGULAR RHYTHM, +S1, +S2 Assessment and Plan - Assessment and Plan (Free Text) Assessment: S/P LEFT TKR HYPERTENSION HISTORY OF ATRIAL FIBRILLATION-NOW IN NSR Plan: CONTINUE METOPROLOL, MULTAQ AND LOVENOX FOR REHAB
[2018-02-19] MEDS ORDERED: Povidone Iodine Topical 10% Sol ONE (11:01)
--- NOTE | 2018-02-19 11:48 | CP.PCM.DIS ---
Provider - Provider Date of Admission: 02/16/18 13:30 Attending physician: Kimberlee Doss MD Primary care physician: Tarun Pelletier III, MD Time Spent in preparation of Discharge (in minutes): 30 Hospital Course - Lab Results Lab Results: Most Recent Lab Values WBC 11.7 K/uL (4.8-10.8) H 02/19/18 05:30 RBC 2.72 Mil/uL (4.40-5.90) L 02/19/18 05:30 Hgb 8.4 g/dL (12.0-18.0) L 02/19/18 05:30 Hct 25.6 % (35.0-51.0) L 02/19/18 05:30 MCV 94.3 fl (80.0-94.0) H 02/19/18 05:30 MCH 31.0 pg (27.0-31.0) 02/19/18 05:30 MCHC 32.9 g/dL (33.0-37.0) L 02/19/18 05:30 RDW 13.4 % (11.5-14.5) 02/19/18 05:30 Plt Count 184 K/uL (130-400) 02/19/18 05:30 MPV 8.6 fl (7.2-11.7) 02/16/18 07:10 Neut % (Auto) 54.8 % (50.0-75.0) 02/16/18 07:10 Lymph % (Auto) 29.8 % (20.0-40.0) 02/16/18 07:10 [place] % (Auto) 10.4 % (0.0-10.0) H 02/16/18 07:10 Eos % (Auto) 4.0 % (0.0-4.0) 02/16/18 07:10 Baso % (Auto) 1.0 % (0.0-2.0) 02/16/18 07:10 Neut # (Auto) 3.6 K/uL (1.8-7.0) 02/16/18 07:10 Lymph # (Auto) 2.0 K/uL (1.0-4.3) 02/16/18 07:10 [place] # (Auto) 0.7 K/uL (0.0-0.8) 02/16/18 07:10 Eos # (Auto) 0.3 K/uL (0.0-0.7) 02/16/18 07:10 Baso # (Auto) 0.1 K/uL (0.0-0.2) 02/16/18 07:10 Sodium 136 mmol/l (132-148) 02/19/18 05:30 Potassium 4.1 MMOL/L (3.6-5.0) 02/19/18 05:30 Chloride 101 mmol/L (98-107) 02/19/18 05:30 Carbon Dioxide 28 mmol/L (22-30) 02/19/18 05:30 Anion Gap 11 (10-20) 02/19/18 05:30 BUN 12 mg/dl (9-20) 02/19/18 05:30 Creatinine 0.9 mg/dl (0.8-1.5) 02/19/18 05:30 Est GFR ( Amer) > 60 02/19/18 05:30 Est GFR (Non-Af Amer) > 60 02/19/18 05:30 Random Glucose 97 mg/dL (75-110) 02/19/18 05:30 Calcium 7.7 mg/dL (8.4-10.2) L 02/19/18 05:30 Total Bilirubin 1.1 mg/dl (0.2-1.3) 02/19/18 05:30 AST 25 U/L (17-59) 02/19/18 05:30 ALT 21 U/L (21-72) 02/19/18 05:30 Alkaline Phosphatase 52 U/L (38-126) 02/19/18 05:30 Total Protein 5.6 G/DL (6.3-8.2) L 02/19/18 05:30 Albumin 2.7 g/dL (3.5-5.0) L 02/19/18 05:30 Globulin 2.9 gm/dL (2.2-3.9) 02/19/18 05:30 Albumin/Globulin Ratio 0.9 (1.0-2.1) L 02/19/18 05:30 25-OH Vitamin D Total < 12.8 NG/ML (30.0-100.0) L 02/17/18 06:30 Blood Type A POSITIVE 02/16/18 07:10 Blood Type Confirm A POSITIVE 02/16/18 08:17 Antibody Screen Negative 02/16/18 07:10 Crossmatch See Detail 02/16/18 07:10 BBK History Checked No verified bt 02/16/18 07:10 - Hospital Course Hospital Course: 67 yo male with PMH HTN, paroxysmal AFIb, sleep apnea, obesity ,Asthma/ COPD admitted s/p L TKR. At present doing well. waiting for [facility] transfer today. Pt HD stable, for follow up CBC tomorrow at [facility]. No acute distress, no pain, no lightheadedness or dizziness. Participating with PT. NAD, stable for discharge to [facility]. 1. s/p L TKR, post op day #3 pain management with percocet PRN DVt prophylaxis with lovenox Incentive spirometry Colace for constipation prevention Orthopedic consultation with Dr. Pelletier Physical therapy consult appreciated for transfer to [facility] TODAY 2. HTN Controlled Continue Toprol 3. HLD chronic, stable 4. Asthma/COPD stable, chronic Advair 5.Paroxysmal A fib SR at present cardiology cosnult with Dr. Abernathy appreciated . Recommended no anticoagulation only Lovenox 40 Mg Sq for DVt prophylaxis Continue Toprol and Amiodarone 6.Morbid Obesity BMI 50 Discharge Exam - Head Exam Head Exam: ATRAUMATIC, NORMAL INSPECTION, NORMOCEPHALIC - Eye Exam Eye Exam: EOMI, Normal appearance, PERRL Pupil Exam: NORMAL ACCOMODATION - ENT Exam ENT Exam: Mucous Membranes Moist, Normal Oropharynx - Neck Exam Neck exam: Full Rom, Normal Inspection - Respiratory Exam Respiratory Exam: Clear to PA & Lateral, NORMAL BREATHING PATTERN - Cardiovascular Exam Cardiovascular Exam: RRR, +S1, +S2 - GI/Abdominal Exam GI & Abdominal Exam: Normal Bowel Sounds, Soft. absent: Mass, Tenderness - Extremities Exam Extremities exam: normal capillary refill, pedal pulses present - Back Exam Back exam: absent: CVA tenderness (L), CVA tenderness (R) - Neurological Exam Neurological exam: Alert, Oriented x3 - Psychiatric Exam Psychiatric exam: Normal Affect, Normal Mood - Skin Skin Exam: Dry, Warm Discharge Plan - Follow Up Plan Condition: GOOD Disposition: TRANSF TO [facility] Additional Instructions: RECHECK CBC TOMORROW PLEASE. Referrals: Tarun Pelletier III, MD [Primary Care Provider] -
[2018-02-19] MEDS: Oxycodone/Acetaminophen 5/325 mg Tab PO PRN (15:31)
--- NOTE | 2018-02-20 14:33 | CARD ---
APPROVED REPORT EKG Measurement Heart [id number] <Conclusion> Normal sinus rhythm with sinus arrhythmia Normal ECG
== END 2018-02-19 15:40 | DRG 470 ==
LOC: H.OPSURG 06:25 → H.MEDSURG1 13:30
PROVIDERS: ADMIT Internal Medicine; ATTEND Internal Medicine
PROC: 0MQP0ZZ Repair Left Knee Bursa and Ligament, Open Approach (ICD-10-PCS; 2018-02-16)
PROC: 3E0T3BZ Introduction of Anesthetic Agent into Peripheral Nerves and Plexi, Percutaneous Approach (ICD-10-PCS; 2018-02-16)
PROC: 0SRD0J9 Replacement of Left Knee Joint with Synthetic Substitute, Cemented, Open Approach (ICD-10-PCS; principal; 2018-02-16 07:45)
PROC: 0SBD0ZZ Excision of Left Knee Joint, Open Approach (ICD-10-PCS; 2018-02-16 07:45)
DX: M17.12 Unilateral primary osteoarthritis, left knee (principal); D62 Acute posthemorrhagic anemia; Z68.43 Body mass index [BMI] 50.0-59.9, adult; D72.829 Elevated white blood cell count, unspecified; E55.9 Vitamin D deficiency, unspecified; E66.01 Morbid (severe) obesity due to excess calories; E78.00 Pure hypercholesterolemia, unspecified; E78.5 Hyperlipidemia, unspecified; G47.33 Obstructive sleep apnea (adult) (pediatric); I10 Essential (primary) hypertension; I48.0 Paroxysmal atrial fibrillation; J44.9 Chronic obstructive pulmonary disease, unspecified; M65.9 Synovitis and tenosynovitis, unspecified; V89.2XXD Person injured in unspecified motor-vehicle accident, traffic, subsequent encounter; Y92.410 Unspecified street and highway as the place of occurrence of the external cause; Z87.891 Personal history of nicotine dependence; Z96.651 Presence of right artificial knee joint; M25.512 Pain in left shoulder; R60.9 Edema, unspecified; M24.562 Contracture, left knee